=== PATIENT | male | born 1990 | race African-American/Black ===

== ENCOUNTER 2022-10-01 21:06 | Emergency (ER) | payer BC, OTHER, SELFPAY ==
[2022-10-01 21:04] VITALS: BP 140/96; PULSE 76; RESP 22; TEMP 36.3; O2SAT 100
[2022-10-01] MEDS: HALOPERIDOL LACTATE 5 MG/ML VIAL (21:14)
[2022-10-01] MEDS: FAMOTIDINE 20 MG/2 ML VIAL IV PUSH (21:25)
[2022-10-01] MEDS: ONDANSETRON INJ 4 MG/2 ML VIAL IV PUSH (21:25)
[2022-10-01 21:26] LABS: Hematocrit 47.7 % (42.0-52.0); Hemoglobin 16.7 g/dL (14.0-18.0); Mean Corpuscular Hemoglobin 29.9 pg (26-34); Mean Corpuscular Volume 85.3 fl (80-100); Mean Platelet Volume 11.8 fl (7.4-10.4); Platelet Count Result 154 k/mm3 (150-375); Red Blood Count 5.59 M/mm3 (4.6-6.20); Red Cell Distribution Width 13.2 % (11.5-14.5); White Blood Count 14.6 K/mm3 (4.5-10.0)
[2022-10-01] MEDS: SODIUM CHLORIDE 0.9% IV 2,000 ML 999 ML IV CONT (21:26)
--- NOTE | 2022-10-01 21:29 | ED.GENADULT ---
HPI - General Adult General Chief complaint: Nausea/Vomiting/Diarrhea Stated complaint: N/V, TINGLING IN FINGERS History of Present Illness HPI narrative: This is a 32-year-old male presenting ED with a chief complaint of nausea and vomiting. Patient says while he was at work started having abdominal pain, nausea and vomiting. The abdominal pain has since resolved but now he is having tingling around his hands and feet. patient denies fever or chills. He denies diarrhea. Denies chest pain or difficulty breathing. Patient's girlfriend recently suffered from food poisoning in the ED in the same location. Patient uses marijuana daily and smokes several blunts per day. Related Data Allergies Allergy/AdvReac Type Severity Reaction Status Date / Time No Known Allergies Allergy Unverified 01/02/14 11:49 Exam Narrative: APPEARANCE: Patient appears uncomfortable Head: atraumatic. EYES: EOMI, NOSE: Atraumatic NECK: Trachea midline RESPIRATORY: No increased rate of breathing, clear to auscultation bilaterally CARDIOVASCULAR: RRR, ABDOMINAL: soft nontender no guarding or rebound MUSCULOSKELETAl: No obvious deformities NEURO: Alert. Moving 4/4 extremities SKIN:: Warm, dry. Normal color PSYCHIATRIC: Normal affect Course Vital Signs Vital signs: Vital Signs Temperature 97.4 F L 10/01/22 21:04 Pulse Rate 76 10/01/22 21:04 Respiratory Rate 22 H 10/01/22 21:04 Blood Pressure 140/96 H 10/01/22 21:04 Pulse Oximetry 100 10/01/22 21:04 Oxygen Delivery Room Air 10/01/22 21:04 Temperature 97.4 F L 10/01/22 21:04 Pulse Rate 76 10/01/22 21:04 Respiratory Rate 22 H 10/01/22 21:04 Blood Pressure 140/96 H 10/01/22 21:04 Pulse Oximetry 100 10/01/22 21:04 Oxygen Delivery Room Air 10/01/22 21:04 Medical Decision Making [facility] Narrative Medical decision making narrative: -Presentation: 32-year-old male presenting with nausea vomiting and tingling in his hands and feet. 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 Independent EKG interpretation: Rhythm [sinus], Rate [], Branch -[normal], PA -[normal], QRS [narrow], QTC [normal], T waves -[negative for concerning inversions], ST Segments - [Negative for concerning elevations] Final interpretations: [Normal Sinus Rhythm] Dx tests considered but not ordered: -Procedures: -Interventions: 2 L normal saline, 5 mg Haldol, 20 mg Pepcid, 4 mg Zofran -Shared decision making / Disposition: patient's symptoms improved after symptomatic treatment. vital signs are stable. All symptoms have resolved. Abdominal exam is still benign. Patient will be discharged home. Patient has been instructed to stop smoking marijuana. -RX Vital Signs Vital Signs: Vital Signs Temperature 97.4 F L 10/01/22 21:04 Pulse Rate 76 10/01/22 21:04 Respiratory Rate 22 H 10/01/22 21:04 Blood Pressure 140/96 H 10/01/22 21:04 Pulse Oximetry 100 10/01/22 21:04 Oxygen Delivery Room Air 10/01/22 21:04 Temperature 97.4 F L 10/01/22 21:04 Pulse Rate 76 10/01/22 21:04 Respiratory Rate 22 H 10/01/22 21:04 Blood Pressure 140/96 H 10/01/22 21:04 Pulse Oximetry 100 10/01/22 21:04 Oxygen Delivery Room Air 10/01/22 21:04 Lab Data 10/01/22 21:21 10/01/22 21:21 Labs: Lab Results 10/01/22 10/01/22 Range/Units 21:21 21:21 WBC 14.6 H (4.5-10.0) K/mm3 RBC 5.59 (4.6-6.20) M/mm3 Hgb 16.7 (14.0-18.0) g/dL Hct 47.7 (42.0-52.0) % MCV 85.3 (80-100) fl MCH 29.9 (26-34) pg MCHC 35.0 (32-36) g/dl RD
[2022-10-01 21:44] LABS: Alanine Aminotransferase 43 U/L (6-50); Albumin Level 5.3 g/dL (3.5-5.1); Alkaline Phosphatase 87 U/L (38-126); Anion Gap 18 mmol/L (8-16); Aspartate Amino Transferase 43 U/L (17-59); Bilirubin,Total 1.3 mg/dL (0.2-1.3); Blood Urea Nitrogen 17 mg/dL (9-20); Calcium 9.8 mg/dL (8.4-10.2); Carbon Dioxide 18 mmol/L (22-30); Chloride 104 mmol/L (98-107); Estimated CRCL calculation 96 ml/min; Estimated Glomerular Filt Rate > 60; Glucose 154 mg/dL (65-110); Lipase 17 U/L (23-300); Potassium 3.2 mmol/L (3.4-5.0); Sodium 140 mmol/L (137-145)
[2022-10-01 21:51] LABS: Band Neutrophils Percent 3 % (0-6); Lymphocytes Absolute Manual 1.75 K/mm3 (1.1-4.5); Monocytes Absolute Manual 0.29 K/mm3 (0.1-0.90); Monocytes Percent Manual 2 % (3-9); Neutrophils Absolute Manual 12.55 K/mm3 (1.3-6.7); Neutrophils Percent Manual 83 % (46-73); Total Cells Counted 100
[2022-10-01 21:52] LABS: Platelet Estimate Adequate (Adequate); Schistocytes None Seen (NORMAL)
[2022-10-01] MEDS: POTASSIUM CHLORIDE 20 MEQ TABLET 40 MEQ PO (23:15)
[2022-10-01 23:21] VITALS: BP 139/86; PULSE 78; RESP 17; O2SAT 98
== END 2022-10-01 23:23 | disposition home or self-care (01) ==
PROVIDERS: Emergency Provider Emergency Medicine
DX: R11.2 Nausea with vomiting, unspecified (principal); F12.90 Cannabis use, unspecified, uncomplicated; E87.6 Hypokalemia
CPT/HCPCS: 36415; 80053; 83690; 85025; 96361; 96374; 96375; 99284; A9270; J1630; J2060; J2405; J7030

== ENCOUNTER 2022-10-02 17:02 | Emergency (ER) | payer BC, OTHER, SELFPAY ==
[2022-10-02 17:12] VITALS: BP 133/71; PULSE 92; RESP 18; TEMP 36.6; O2SAT 100
[2022-10-02 17:36] LABS: Basophils Percent Auto 0.4 % (0.2-1.2); Eosinophils Percent Auto 0.2 % (0-4.4); Hemoglobin 16.1 g/dL (14.0-18.0); Immature Granulocyte Absolute 0.01 K/mm3 (0.00-0.031); Immature Granulocyte Percent A 0.1 % (0-0.5); Lymphocytes Absolute Auto 1.44 K/mm3 (0.9-3.2); Lymphocytes Percent Auto 17.3 % (18.3-44.2); Mean Corpuscular Hemoglobin 29.9 pg (26-34); Mean Corpuscular Volume 85.3 fl (80-100); Mean Platelet Volume 11.6 fl (7.4-10.4); Monocytes Absolute Auto 0.7 K/mm3 (0.1-0.6); Monocytes Percent Auto 8.3 % (2.6-8.5); Neutrophils Absolute Auto 6.1 K/mm3 (1.3-6.7); Neutrophils Percent Auto 73.7 % (45.5-73.1); Platelet Count Result 153 k/mm3 (150-375); Red Blood Count 5.39 M/mm3 (4.6-6.20); Red Cell Distribution Width 13.2 % (11.5-14.5); White Blood Count 8.3 K/mm3 (4.5-10.0)
--- NOTE | 2022-10-02 17:47 | PC.NURSE ---
PT left before seeing provider.
[2022-10-02 17:48] LABS: Ovalocytes 1+ (NORMAL); Platelet Estimate Adequate (Adequate); Schistocytes None Seen (NORMAL)
[2022-10-02 17:52] LABS: Alkaline Phosphatase 76 U/L (38-126); Anion Gap 15 mmol/L (8-16); Aspartate Amino Transferase 53 U/L (17-59); Bilirubin,Total 1.6 mg/dL (0.2-1.3); Blood Urea Nitrogen 12 mg/dL (9-20); Calcium 9.2 mg/dL (8.4-10.2); Carbon Dioxide 19 mmol/L (22-30); Chloride 102 mmol/L (98-107); Estimated CRCL calculation 78 ml/min; Estimated Glomerular Filt Rate > 60; Glucose 123 mg/dL (65-110); Magnesium 1.7 mg/dL (1.6-2.3); Potassium 2.8 mmol/L (3.4-5.0); Sodium 136 mmol/L (137-145)
--- NOTE | 2022-10-02 18:02 | PC.NURSE ---
called to inform the pt of Potassium low value, gave small amount of info, number to call and what pt should do at this time. LVM for the pt. Dr Ontiveros informed of critical lab value and was also informed that the pt LWBS
[2022-10-02 18:03] LABS: Alanine Aminotransferase 53 U/L (6-50)
== END 2022-10-02 17:47 | disposition left against medical advice (07) ==
LOC: ANHED 18:10
PROVIDERS: Emergency Provider Emergency Medicine
DX: R20.2 Paresthesia of skin (principal)
CPT/HCPCS: 36415; 80053; 83735; 85025; 99199

== ENCOUNTER 2023-01-16 14:01 | Emergency (ER) | payer OTHER, SELFPAY ==
[2023-01-16 14:09] VITALS: BP 110/60; PULSE 110; RESP 15; TEMP 36.7; O2SAT 100
--- NOTE | 2023-01-16 14:16 | PC.NURSE ---
Pt and s/o was informed that, per hospital policy, their baby could not go back to a room with him as a visitor to help keep the baby safe from any exposures. Pt and s/o appeared aggravated at RN. Pt and family seen walking out the ER entrance. RN called out to talk with pt to see if he was leaving, no response from patient. Pt and s/o seen continuing to walk out to parking lot.
== END 2023-01-16 14:16 | disposition left against medical advice (07) ==
LOC: ANHED 14:35
DX: R10.9 Unspecified abdominal pain (principal)
CPT/HCPCS: 99199

== ENCOUNTER 2023-12-23 09:19 | Emergency (ER) | payer OTHER, SELFPAY ==
[2023-12-23 09:22] VITALS: BP 126/81; PULSE 88; RESP 16; TEMP 37.7; O2SAT 98
[2023-12-23 09:26] VITALS: BP 126/81; PULSE 93; RESP 19; O2SAT 97
--- NOTE | 2023-12-23 09:33 | ED.ANXIETY ---
HPI - Anxiety General Chief Complaint: Anxiety Stated Complaint: ANXIETY Time Seen by Provider: 12/23/23 09:22 Source: patient Mode of arrival: ambulatory Limitations: no limitations History of Present Illness HPI narrative: This is a 33 year old male that presents to the ER for panic attacks. Reports over the last year he has experienced several episodes where he starts to feel very anxious, he feels tingling in his hands and feet. He feels like he needs to get up and pace. Sometimes during these episodes he will hyperventilate to the point of his hands cramping. He experienced one at work this week. He is requesting a work note. He has not seen a primary doctor for this. He is not currently on any anxiety medication. Related Data Allergies Allergy/AdvReac Type Severity Reaction Status Date / Time No Known Allergies Allergy Unverified 12/23/23 09:19 Review of Systems Review of Systems: PSYCHIATRIC: Reports anxiety All systems reviewed & are unremarkable except as noted in HPI and below PMFSH Past Medical History Medical History (Updated 12/23/23 @ 10:10 by Mary Wilson PA-C) No active medical problems Social History Social History (Updated 12/23/23 @ 09:38 by Mary Wilson PA-C) Substance use: current Substance use type: marijuana Exam Narrative: GENERAL: Well-appearing, well-nourished, and in no acute distress. HEAD: Normocephalic, atraumatic. EYES: EOMI. CHEST: Clear to auscultation. No respiratory distress. No wheezes rales or rhonchi HEART: Regular rate and rhythm. No murmur heard. Normal peripheral pulses. EXTREMITIES: Normal range of motion. No edema. SKIN: Warm, dry, no rash. NEURO: No focal deficits. Alert and oriented x3. PSYCH: Normal mood and affect Course Course Emergency Course: Patient updated on his workup and agrees with plan of care Vital Signs Vital signs: Vital Signs Temperature 99.8 F H 12/23/23 09:22 Pulse Rate 88 12/23/23 09:22 Respiratory Rate 16 12/23/23 09:22 Blood Pressure 126/81 12/23/23 09:22 Pulse Oximetry 98 12/23/23 09:22 Oxygen Delivery Room Air 12/23/23 09:22 Temperature 99.8 F H 12/23/23 09:22 Pulse Rate 93 06/26/24 09:26 Respiratory Rate 19 12/23/23 09:26 Blood Pressure 126/81 12/23/23 09:26 Pulse Oximetry 97 12/23/23 09:26 Oxygen Delivery Room Air 12/23/23 09:22 MDM - Anxiety MDM Narrative Medical decision making narrative: Patient presents to the emergency department for panic episodes. Ongoing over the last year. His vitals are stable. He has no current symptoms. CBC without concerning findings. Metabolic panel with hyperbilirubinemia. It is similar to previous labs. Vitamin B12 and folate are normal. Patient was instructed to have further follow-up with a primary provider for management of his anxiety and further workup of isolated hyperbilirubinemia. He was given warnings to return to the ER Differential Diagnosis Differential diagnosis: Likely hyperventilation, panic disorder, acute anxiety and other (electrolyte derangement, vitamin deficiency) Lab Data Attestation: I reviewed the patient's lab results. 12/23/23 09:34 12/23/23 09:34 Labs: Lab Results 12/23/23 Range/Units 09:34 WBC 5.2 (4.5-10.0) K/mm3 RBC 5.46 (4.6-6.20) M/mm3 Hgb 15.9 (14.0-18.0) g/dL Hct 45.7 (42.0-52.0) % MCV 83.7 (80-100) fl MCH 29.1 (26-34) pg MCHC 34.8 (32-36) g/dl RDW 14.0 (11.5-14.5) % Plt Count 166 (150-375) k/mm3 MPV 10.6 H (7.4-10.4) fl Immature Gran % (Auto) 0.2 (0-0.5) % Neut % (Auto) 59.1 (45.5-73.1) % Lymph % (Auto) 29.7 (18.3-44.2) % [place] % (Auto) 10.2 H (2.6-8.5) % Eos % (Auto) 0.4 (0-4.4) % Baso % (Auto) 0.4 (0.2-1.2) % Lymph # (Auto) 1.54 (0.9-3.2) K/mm3 Dodge # (Auto) 0.5 (0.1-0.6) K/mm3 Eos # (Auto) 0.0 (0-0.3) K/mm3 Baso # (Auto) 0.0 (0.0-0.1) K/mm3 Abs Immat Gran (auto) 0.01 (0.00-0.031)
[2023-12-23 09:40] LABS: Basophils Percent Auto 0.4 % (0.2-1.2); Eosinophils Percent Auto 0.4 % (0-4.4); Hematocrit 45.7 % (42.0-52.0); Hemoglobin 15.9 g/dL (14.0-18.0); Immature Granulocyte Absolute 0.01 K/mm3 (0.00-0.031); Immature Granulocyte Percent A 0.2 % (0-0.5); Lymphocytes Absolute Auto 1.54 K/mm3 (0.9-3.2); Lymphocytes Percent Auto 29.7 % (18.3-44.2); Mean Corpuscular HGB Conc 34.8 g/dl (32-36); Mean Corpuscular Hemoglobin 29.1 pg (26-34); Mean Corpuscular Volume 83.7 fl (80-100); Mean Platelet Volume 10.6 fl (7.4-10.4); Monocytes Absolute Auto 0.5 K/mm3 (0.1-0.6); Monocytes Percent Auto 10.2 % (2.6-8.5); Neutrophils Absolute Auto 3.1 K/mm3 (1.3-6.7); Neutrophils Percent Auto 59.1 % (45.5-73.1); Platelet Count Result 166 k/mm3 (150-375); Red Blood Count 5.46 M/mm3 (4.6-6.20); White Blood Count 5.2 K/mm3 (4.5-10.0)
[2023-12-23 09:50] LABS: Alanine Aminotransferase 20 U/L (6-50); Albumin Level 4.9 g/dL (3.5-5.1); Alkaline Phosphatase 69 U/L (38-126); Anion Gap 9 mmol/L (4-12); Aspartate Amino Transferase 25 U/L (17-59); Blood Urea Nitrogen 16 mg/dL (9-20); Calcium 9.5 mg/dL (8.4-10.2); Carbon Dioxide 25 mmol/L (22-30); Chloride 106 mmol/L (98-107); Estimated CRCL calculation 82 ml/min; Estimated Glomerular Filt Rate > 60; Glucose 103 mg/dL (65-110); Magnesium 1.8 mg/dL (1.6-2.3); Potassium 3.5 mmol/L (3.4-5.0); Sodium 140 mmol/L (137-145)
[2023-12-23 10:17] VITALS: BP 117/78; PULSE 79; RESP 14; TEMP 36.6; O2SAT 98
[2023-12-23 10:56] LABS: Folic Acid 15.3 ng/mL (2.76->20)
[2023-12-23 11:01] VITALS: BP 119/64; PULSE 86; RESP 16; TEMP 36.6; O2SAT 100
== END 2023-12-23 11:12 | disposition home or self-care (01) ==
PROVIDERS: Emergency Provider Physician Assistant
DX: F41.9 Anxiety disorder, unspecified (principal); E80.6 Other disorders of bilirubin metabolism
CPT/HCPCS: 36415; 80053; 82607; 82746; 83735; 85025; 99283